=== PATIENT | female | born 1935 | race Caucasian/White ===

== ENCOUNTER → 2020-05-03 12:13 | Outpatient (BNVA) | payer MEDICARE, SELFPAY | PROVIDERS: PCP Internal Medicine; Visit Provider Internal Medicine Cardiovascular Disease | DX: Z45.02 Encounter for adjustment and management of automatic implantable cardiac defibrillator (principal); I50.20 Unspecified systolic (congestive) heart failure | CPT/HCPCS: 99212 ==

== ENCOUNTER → 2020-11-24 13:25 | Outpatient (REF) | payer OTHER, SELFPAY ==
--- NOTE | 2020-11-24 14:00 | CA_ITS ---
Transthoracic Echocardiogram Patient (Last, First, Middle): Sarah Rob M Gender: Female Date of : 1935 Age: 85 Procedure Date: 11/24/2020 Procedure Type: Transthoracic Echocardiogram Location: OP Height: 154.94 cm Weight: 51.26 kg BSA: 1.48 m2 Heart Rate: bpm BP: 112 / 70 mmHg Smearer: Ruma MD: Anatoly Dunn MD Java Programming Professor: Anatoly Dunn MD Symptoms: I44.7 LBBB I50.20 SYSTOLIC CHF Z86.79 PER HX CIRCULATORY DIS Study Quality: Fair ECG Rhythm: Sinus Conclusions: - 1. Normal LV systolic function with impaired relaxation filling pattern 2. Mildly dilated left atrium 3. Normal cardiac valvular Doppler 4. Normal RV systolic pressure 5. No pericardial effusion Findings Left Ventricle Normal left ventricular size, thickness, and systolic function. The visually estimated ejection fraction is between 55-60%. There is paradoxical septal motion consistent with a left bundle branch block. Spectral Doppler is indicative of an impaired relaxation filling pattern. E/E prime ratio is between 8 and 15 consistent with indeterminate filling pressures. Right Ventricle Normal right ventricular cavity size and systolic function. There is a pacemaker wire seen in the right ventricle. Atria The left atrium is mildly dilated. Interatrial shunt cannot be excluded. The right atrium is likely dilated. A pacemaker wire is identified in the right atrium. Aortic Valve Normal aortic valve structure and function. There is no aortic valve stenosis. There is no aortic valve regurgitation. Mitral Valve Normal mitral valve structure and function. There is trace mitral valve regurgitation. There is no mitral valve stenosis. Pulmonic Valve The pulmonic valve was not well visualized. Tricuspid Valve Likely normal tricuspid valve structure and function. There is trace tricuspid valve regurgitation. The right ventricular systolic pressure is normal. The right ventricular systolic pressure is 28 mmHg. Normal right atrial pressure. There is no evidence of pulmonary hypertension. Great Vessels All visible segments of the aorta are normal in size. The pulmonary artery was not well visualized. Venous The inferior vena cava is normal in size and collapses greater than 50% with inspiration. Pericardium/Pleural There is no evidence of pericardial effusion. Prior Study Comparison No prior study available for comparison. Measurements 2D Linear Measurements RVIDd: 2.28 RVIDd Index: 1.54 IVSd: 1.09 0.6-0.9/0.6-1.0 cm LVIDd: 4.26 3.9-5.3/4.2-5.9 cm LVIDd Index: 2.88 2.4-3.2/2.2-3.1 cm/m2 LVIDs: 2.90 2.0-3.6 cm LVPWd: 1.00 0.7-1.1 cm Ao Root: 2.80 2.1-3.5 cm LA Diam: 3.30 2.7-3.8/3.0-4.0 cm LAIDs Index: 2.23 1.5-2.3 cm/m2 LV Mass: 185.89 67-162/88-224 g LV Mass Index: 125.60 43-95/49-115 g/m2 LVOT Diam: 1.90 3.0+(-)1.3 cm 2D Systolic Function EF 4C: 46.00 >55% EF 2C: 68.70 >55% EF BiP: 59.10 >55% Mitral Valve E'Lateral: 9.14 E'Medial: 3.92 Aortic Valve AoV Pk Krzysztof: 1.28 AoV Mn Krzysztof: 0.92 AoV VTI: 0.31 AoV Pk Grad: 7.00 Aov Mn Grad: 4.00 WILLIAM Cont.VTI: 2.10 LVOT LVOT Pk Krzysztof: 1.03 LVOT Mn Krzysztof: 0.71 LVOT VTI: 0.23 LVOT Pk Grad: 4.00 LVOT Mn Grad: 2.00 LVOT Diam: 1.90 LVOT Area: 2.84 Diastolic Function E'Medial: 3.92 E' Laterial: 9.14 Tricuspid Valve TR Pk Krzysztof: 2.51 TR Pk Grad: 25.00 RA Press: 3.00 RVSP: 28.00 Great Vessels Aorta Ao Root-2D: 2.80 2.0-3.7 cm Ao Asc: 3.00 2.1-3.4 cm Ao Arch: 2.20 Updated in Other Vendor System with Status of Final Anatoly Dunn MD electronically signed on 11/24/2020 4:49:45 PM with status of Final
== END ==
LOC: HO.CARD 13:25
PROVIDERS: Visit Provider Internal Medicine Cardiovascular Disease
DX: I44.7 Left bundle-branch block, unspecified (principal); I50.20 Unspecified systolic (congestive) heart failure; Z86.79 Personal history of other diseases of the circulatory system
CPT/HCPCS: 93306

== ENCOUNTER → 2020-12-02 12:50 | Outpatient (BNVA) | payer MEDICARE, SELFPAY | PROVIDERS: PCP Internal Medicine; Referring Provider Internal Medicine; Visit Provider Internal Medicine Cardiovascular Disease | DX: I50.20 Unspecified systolic (congestive) heart failure (principal); Z95.810 Presence of automatic (implantable) cardiac defibrillator; Z79.899 Other long term (current) drug therapy | CPT/HCPCS: 99212 ==

== ENCOUNTER → 2021-01-25 11:19 | Outpatient (BNVA) | payer OTHER, SELFPAY | PROVIDERS: PCP Internal Medicine; Referring Provider Internal Medicine; Visit Provider Surgery | DX: L72.3 Sebaceous cyst (principal) | CPT/HCPCS: 99202 ==

== ENCOUNTER 2021-02-24 11:21 | Outpatient (REF) | payer OTHER, SELFPAY ==
[2021-02-24 11:32] VITALS: BP 143/76; PULSE 84; RESP 16; TEMP 36.2; O2SAT 98
[2021-02-24 11:33] VITALS: BMI 22.0
--- NOTE | 2021-02-24 12:17 | P.OP_ITS ---
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 She presents today for excision Operative findings: 2.5 by 2.5 cm epidermal inclusion cyst of the midback with no evidence of acute infection Specimen: Epidermal inclusion cyst midback Estimated blood loss: 2 mL Complications: None Procedure details: Patient was brought to the minor surgery suite placed in a right lateral decubitus position. The site of surgery was confirmed by the patient and her daughter informed consent confirmed. Skin was prepped with Betadine and draped in a sterile fashion. Local anesthesia consisting 1% lidocaine with epinephrine was then infiltrated circumferentially around the lesion. An elliptical incision oriented longitudinally was then created with a scalpel carried out through subcutaneous tissue. Sharp dissection was then used to dissect the lesion from the subcutaneous tissue. Lesion was passed off the t able and sent to pathology for further examination. Light pressure was held to maintain hemostasis. Dermis was then reapproximated using interrupted 3-0 Polysorb sutures. Skin was closed using interrupted 4-0 nylon sutures. 2 x 2 gauze and Tegaderm were then applied. The patient tolerated the procedure well. Sponge, instrument, needle counts were correct. The patient was discharged to home in stable condition.
== END 2021-02-24 11:22 | disposition home or self-care (01) ==
LOC: HO.MS 11:21
PROVIDERS: Visit Provider Surgery
PROC: (CPT 11403; principal; 2021-02-24 11:30)
DX: L72.0 Epidermal cyst (principal)
CPT/HCPCS: 11403; 88304

== ENCOUNTER → 2021-03-03 12:56 | Outpatient (BNVA) | payer OTHER, SELFPAY | PROVIDERS: PCP Internal Medicine; Referring Provider Internal Medicine; Visit Provider Surgery | DX: L72.0 Epidermal cyst (principal); Z90.49 Acquired absence of other specified parts of digestive tract; Z88.0 Allergy status to penicillin; Z48.02 Encounter for removal of sutures | CPT/HCPCS: 99212 ==

== ENCOUNTER 2021-10-11 13:29 | Emergency (ER) | payer OTHER, SELFPAY ==
--- NOTE | ~2021-10-11 | CT_ITS ---
EXAMINATION: CT HEAD WITHOUT CONTRAST CLINICAL INFORMATION: Fall, trauma, blood thinner COMPARISON: CT had noncontrast 04/05/2020 TECHNIQUE: Contiguous axial imaging was performed from the skull base to vertex without intravenous administration of contrast. Additional 2-D coronal and sagittal reformatted images are generated on the CT workstation and uploaded to PACS. This CT examination was performed using dose optimization techniques as appropriate, variously including the following: *Automated exposure control *Adjustment of mA and/or kV according to patient size (this includes techniques or standardized protocols for targeted exams where dose is matched to indication/reason for exam; i.e. extremities or head) *Use of iterative reconstruction technique DLP: 569 mGy-cm FINDINGS: There is upper right frontal scalp hematoma measuring approximately 0.6 cm thickness by 2 cm across. There is no intracranial hemorrhage, hematoma, or extra-axial fluid collection. The ventricles are normal in size. There is no edema or mass effect or midline shift. Again, extensive periventricular white matter gliosis is present consistent with chronic small vessel ischemic changes. There is no visible acute territorial infarct or mass lesion. The calvarium appears intact. There is no pneumocephalus or orbital emphysema. The visualized sinuses and middle ears and mastoid air cells show no significant mucosal thickening. There are no air-fluid levels. CT/CT head/brain wo con IMPRESSION: -Upper right frontal scalp hematoma 0.6 cm thickness by 2 cm across. -No intracranial hemorrhage or hematoma. -Chronic periventricular white matter gliosis/chronic small vessel ischemic changes. -No acute territorial infarct or mass lesion.
--- NOTE | ~2021-10-11 | XR_ITS ---
EXAMINATION: XR CHEST CLINICAL INFORMATION: Cough, shortness of breath COMPARISON: X-ray 03/10/2019 TECHNIQUE: Frontal view of the chest was obtained. FINDINGS: Rotated positioning. Power source in the left pectoral soft tissue with leads projected in the region of the right atrium, right ventricle and coronary sinus. Low lung volumes. Heart size within normal limits. Calcification of the aortic arch. There is peribronchial thickening in bilateral perihilar regions and bilateral lower lobes, with subjacent hazy opacities. No dense consolidation is otherwise seen. The left lateral lower lung and costophrenic angle is obscured by the correlating power source. No right-sided pleural effusion. No overt pulmonary edema. No pneumothorax seen. XR/XR chest 1V IMPRESSION: Peribronchial thickening with associated hazy opacities in the bilateral perihilar regions and bilateral lower lobes. This could reflect infectious or inflammatory process. Recommendation is for a follow-up chest series to be obtained following treatment and/or resolution of symptoms to assure resolution of this appearance.
--- NOTE | ~2021-10-11 | CT_ITS ---
EXAMINATION: CT CHEST WITHOUT CONTRAST CLINICAL INFORMATION: Shortness of breath and cough COMPARISON: Chest radiograph earlier today TECHNIQUE: Multidetector volumetric CT imaging of the chest was done. Axial MIP volume rendering provided. Sagittal and coronal reformatted images were obtained. This CT examination was performed using dose optimization techniques as appropriate, variously including the following: *Automated exposure control *Adjustment of mA and/or kV according to patient size (this includes techniques or standardized protocols for targeted exams where dose is matched to indication/reason for exam; i.e. extremities or head) *Use of iterative reconstruction technique The exam is degraded by significant respiratory/motion artifact. DLP: 214 mGy-cm FINDINGS: LUNGS: Bibasilar atelectasis is seen with some dependent groundglass opacity. No consolidations with air bronchograms are present. No suspicious lung masses are seen. MEDIASTINUM: A left chest wall bipolar pacemaker is present. Heart size is normal. A tiny pericardial effusion is seen. Atherosclerotic changes are present in the aorta and its branches without aneurysm. PLEURA: There is no pleural effusion. No pleural mass or thickening. AXILLA: No lymphadenopathy. UPPER ABDOMEN: Unremarkable. OSSEOUS STRUCTURES: Compression fractures are present at L1 and T11. Degenerative changes are present throughout the spine. CT/CT chest wo con IMPRESSION: No acute intrathoracic disease. Bibasilar atelectasis and groundglass opacity without consolidation. Fleischner guidelines were followed.
--- NOTE | ~2021-10-11 | CT_ITS ---
EXAMINATION: CT ANGIOGRAM OF THE CHEST WITH AND WITHOUT CONTRAST (CT PULMONARY ANGIOGRAM FOR PE) CLINICAL INFORMATION: Reason for Exam Elevated dimer, hypoxia, fall COMPARISON: 10/11/2021 TECHNIQUE: Prior to contrast administration, noncontrast localization images were obtained. Subsequently, multidetector volumetric imaging was performed from the thoracic inlet to below the diaphragms following the administration of 80 mL Omnipaque 350 intravenous contrast. No contrast reaction reported Sagittal, coronal, and MIP oblique sagittal reformatted images were obtained on the CT workstation, uploaded to PACS, and reviewed. This CT examination was performed using dose optimization techniques as appropriate, variously including the following: *Automated exposure control *Adjustment of mA and/or kV according to patient size (this includes techniques or standardized protocols for targeted exams where dose is matched to indication/reason for exam; i.e. extremities or head) *Use of iterative reconstruction technique Total exam dose-length product 240 mGy-cm FINDINGS: QUALITY OF STUDY/CONTRAST BOLUS: Satisfactory. PULMONARY ARTERIES: No central or segmental pulmonary emboli. THORACIC AORTA: No evidence of aneurysm or dissection. There is extensive atherosclerotic plaque and calcification. LUNG: Dependent regions of groundglass opacity with some denser opacities which may at least partially be due to atelectasis, though a component of aspiration may also be present. Bronchial wall thickening is noted in the bilateral lower lobes along with some impacted airways. PLEURA: Trace pleural effusions. No pneumothorax. MEDIASTINUM: Thyroid gland appears grossly unremarkable. No mediastinal lymphadenopathy is seen. Cardiac size is within normal limits. Trace pericardial effusion. Coronary artery calcifications are present. CHEST WALL/AXILLA: Left-sided pacemaker/AICD. No axillary lymphadenopathy is present. OSSEOUS STRUCTURES: Degenerative changes are noted in the spine. Redemonstrated compression deformities of T11 and L1. UPPER ABDOMEN: Unremarkable. No reflux of contrast into the hepatic veins to suggest elevated right heart pressures. CT/CT angio chest PE protocol IMPRESSION: 1. No pulmonary embolus identified. 2. Dependent regions of opacity in the lower lobes. While at least some of this may be due to atelectasis, superimposed areas of aspiration may also be present, as some of the bilateral lower lobe airways are opacified. 3. Trace pleural effusions. Trace pericardial effusion. VTE: negative
--- NOTE | ~2021-10-11 | CT_ITS ---
EXAMINATION: CT CERVICAL SPINE WITHOUT CONTRAST CLINICAL INFORMATION: Fall, trauma, blood thinners. COMPARISON: CT had noncontrast 10/11/2021, 04/05/2020 TECHNIQUE: Multidetector volumetric CT imaging of the cervical spine is performed without contrast in the axial plane. Additional 2D reformatted coronal and sagittal images are generated on the CT workstation and uploaded to PACS. This CT examination was performed using dose optimization techniques as appropriate, variously including the following: *Automated exposure control *Adjustment of mA and/or kV according to patient size (this includes techniques or standardized protocols for targeted exams where dose is matched to indication/reason for exam; i.e. extremities or head) *Use of iterative reconstruction technique DLP: 253 mGy-cm FINDINGS: There is no vertebral compression fracture, fracture line, spondylolisthesis, or prevertebral soft tissue swelling. The craniocervical junction appears normal. The odontoid appears intact. There is normal cervical lordosis. There is levocurvature cervical thoracic spine. Degenerative disc changes are present, greatest at C3-C4 and C5-C6 with disc narrowing and endplate sclerosis and vertebral spurring. No perched facet. There is no apical pneumothorax. CT/CT cervical spine wo con IMPRESSION: 1. No acute bony abnormality or prevertebral soft tissue swelling. 2. Degenerative disc changes C3-C4 and C5-C6.
[2021-10-11 15:23] VITALS: BP 122/63; PULSE 63; RESP 18; TEMP 36.8; O2SAT 94; BMI 16.6
--- NOTE | 2021-10-11 19:35 | ED.FALL ---
HPI - Fall General Chief Complaint: Fall <JOE Guillory Last Filed: 10/12/21 03:18> Stated Complaint: fall head inj <JOE Guillory Last Filed: 10/12/21 03:18> Time Seen by Provider: 10/11/21 16:47 <JOE Guillory Last Filed: 10/12/21 03:18> Source: patient <JOE Guillory Last Filed: 10/12/21 03:18> Mode of arrival: ambulatory <JOE Guillory Last Filed: 10/12/21 03:18> Limitations: no limitations <JOE Guillory Last Filed: 10/12/21 03:18> History of Present Illness HPI Narrative: 86-year-old female past medical history significant for Alzheimer's, heart failure, cardiomyopathy, left bundle-branch block, asthma presenting to the emergency department with complaints of fall today and productive cough times few weeks. Patient is accompanied by her daughter, both of which are poor historians, daughter tells me that her mother was getting out of her bed to walk to the bathroom which she never does by herself because of her unsteady gait and she tripped and fell. She hit her head and she has a bruise to her right forehead. She tells me that she thinks that her mother is on blood thinners however she is unsure. She tells me that there was no loss of consciousness. She also reports that her mother has been having a productive cough, she tells me that she did not give her mother breathing treatments today. Patient tells me she feels fine and her head is hurting her little bit, denies dizziness or vision changes. She has no other complaints at this time however poor historian. She denies chest pain, shortness of breath, fevers, chills, nausea, vomiting, abdominal pain. <JOE Guillory Last Filed: 10/12/21 03:18> MD complaint: fall <JOE Guillory Last Filed: 10/12/21 03:18> Onset (ago): day(s) (1) <JOE Guillory Last Filed: 10/12/21 03:18> Fall from: standing <JOE Guillory - Last Filed: 10/12/21 03:18> Fall witnessed: yes, by family <JOE Guillory - Last Filed: 10/12/21 03:18> Place fall occurred: home <JOE Guillory - Last Filed: 10/12/21 03:18> Loss of consciousness: none <JOE Guillory - Last Filed: 10/12/21 03:18> Prolonged down time: no <JOE Guillory - Last Filed: 10/12/21 03:18> Symptoms prior to fall: none <JOE Guillory - Last Filed: 10/12/21 03:18> Context: tripped/slipped <JOE Guillory - Last Filed: 10/12/21 03:18> Location of injury: head <JOE Guillory Last Filed: 10/12/21 03:18> Severity: moderate <JOE Guillory Last Filed: 10/12/21 03:18> Associated symptoms (after fall): denies <JOE Guillory - Last Filed: 10/12/21 03:18> Related Data Home Medications: Home Medications Medication Instructions Recorded Confirmed atorvastatin 80 mg tablet 80 mg PO DAILY 05/03/20 12/02/20 calcium carbonate 600 mg-vitamin 1 tab PO DAILY tab 05/03/20 12/02/20 D3 10 mcg (400 unit) tablet carvedilol 12.5 mg tablet 12.5 mg PO BID tab 05/03/20 12/02/20 clopidogrel 75 mg tablet 75 mg PO QAM 05/03/20 12/02/20 fluticasone furoate 100 ea INHALATION 05/03/20 12/02/20 mcg-vilanterol 25 mcg/dose inhalation powder furosemide 20 mg tablet 20 mg PO QAM 05/03/20 12/02/20 hydralazine 25 mg tablet 25 mg PO 05/03/20 12/02/20 insulin detemir U-100 100 unit/mL 5 unit SUBCUT 05/03/20 12/02/20 (3 mL) subcutaneous pen linagliptin 5 mg tablet 5 mg PO QAM 05/03/20 12/02/20 loratadine 10 mg tablet 10 mg PO QAM 05/03/20 12/02/20 losartan 100 mg tablet 100 mg PO DAILY 05/03/20 12/02/20 meclizine 25 mg tablet 25 mg PO TID 05/03/20 12/02/20 blood sugar diagnostic (FreeStyle #10 ea 01/25/21 Lite Strips) pen needle, diabetic 31 gauge x #50 ea 01/25/2107/27 (Easy Touch) Previous Rx's Medication Instructions Recorded albuterol sulfate 90 mcg/actuation 2 inh INHALATION Q4-6H PRN #1 ea 10/11/21 breath activated powder inhaler azithromycin 250 mg tablet See Rx Instructions .ROUTE 10/12/21 .COMPLEX #6 tab <JOE Guillory Last Filed: 10/12/21 03:18> Allergies/Adverse Reactions: Allergies Allergy/AdvReac Type Severity Reaction Status Date / Time Penicillins [PENICILLINS] Allergy Unknown RASH Verified 10/11/21 15:23 <JOE Guillory Last Filed: 10/12/21 03:18> Review of Systems Review of Systems: Constitutional : No Weight loss, No Fever, No Chills, No Fatigue, No Malaise ENT/Mouth : No sore throat, No Rhinorrhea Eyes: No Eye Pain, No Swelling, No Redness Cardiovascular : No Chest Pain, No SOB, No Dyspnea on Exertion, No Orthopnea, No Edema, No Palpitations Respiratory : + Cough, + Sputum, No Wheezing Gastrointestinal : No Nausea, No Vomiting, No Diarrhea, No Constipation, No abdominal Pain, No Hematochezia, No Melena Genitourinary : No Dysuria, No Urinary Frequency, No Hematuria, Musculoskeletal : No joint pain, No Myalgias, No Joint Swelling Skin : No Skin Lesions, No rash Neuro : No Weakness, No Numbness, No Dizziness, + Headache Psych : No Anxiety/Panic, No Depression All other systems reviewed and are negative <JOE Guillory Last Filed: 10/12/21 03:18> Yes all other systems are reviewed and are negative <JOE Guillory Last Filed: 10/12/21 03:18> [facility] Past Medical History Attestation statement: The following information was validated with the patient. 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 Mother No problems noted. <JOE Guillory - Last Filed: 10/12/21 03:18> Social History Social History: Social History Advance Directives: No Advance Directives Information Provided: No <JOE Guillory - Last Filed: 10/12/21 03:18> Physical Exam Vital Signs: Vital Signs: Last Vital Signs Temp 98.3 F 10/11/21 15:23 Pulse 62 10/11/21 23:39 Resp 16 10/12/21 01:55 BP 151/72 H 10/11/21 23:39 Pulse Ox 93 10/12/21 01:55 BMI result Body Mass Index 16.6 VSS <JOE Guillory - Last Filed: 10/12/21 03:18> Vital Signs: Last Vital Signs Temp 98.3 F 10/11/21 15:23 Pulse 62 05/31/22 23:39 Resp 16 10/12/21 01:55 BP 151/72 H 10/11/21 23:39 Pulse Ox 93 10/12/21 01:55 BMI result Body Mass Index 16.6 <Marcela Dubois MD - Last Filed: 10/12/21 05:00> Appearance: Alert.? Oriented to person, not time, situation. According to daughter this is patient's baseline. No acute distress.? Head: Normocephalic, + hematoma to r. forehead not bleeding (doesn't require sutures) , no step-offs or deformities Eyes: Pupils equal, round and reactive to light.?EOMI ENT: Pharynx normal.? Neck: Normal inspection.? Neck supple.? CVS: Normal heart rate and rhythm.? Pulses normal.? Respiratory: No respiratory distress.? Breath sounds normal.? Abdomen: Soft and nontender.? Skin: Skin warm and dry.? Normal skin color.? Normal skin turgor.? Extremities: No lower extremity edema.? No calf ttp. Global weakness. Back: No midline tenderness, no C-spine tenderness, full range of motion,. Neuro: Oriented to person, not time or situation. According to daughter this is baseline. No motor deficit.? No sensory deficit. CN 2-12 intact . Able to answer basic questions. <JOE Guillory - Last Filed: 10/12/21 03:18> Course Reevaluation(s) Reevaluation #1: Patient's CBC with no acute findings. Chemistry with a slight GILBERT however this appears to be patient's baseline. Patient's calcium slightly elevated as well as an elevated BUN, likely from dehydration. Total bilirubin 1.4 however no tenderness to palpation of abdomen. BNP 193, unlikely that this is heart failure. Troponin 15, repeat troponin 15.9, not meeting criteria for ACS. Patient has 3+ leukocyte esterases, will treat for UTI as patient is unable to tell me whether not she is having urinary symptoms. COVID and influenza negative. D-dimer elevated CTA was obtained. <JOE Guillory - Last Filed: 10/12/21 03:18> Time: 23:00 <JOE Guillory - Last Filed: 10/12/21 03:18> Reevaluation #2: CT of the cervical spine with no acute bony abnormalities or prevertebral soft tissue swelling. There are degenerative changes in C3 through C4 and C5-C6 however these appear to be chronic not acute. There is an upper right frontal scalp hematoma .6 cm , consistent with physical exam findings. No intracranial hemorrhage or hematoma. Chronic periventricular white matter changes noted. No acute territorial infarct or mass lesion noted. Chest x-ray with peribronchial thickening with associated hazy opacities in the bilateral perihilar regions in bilateral lower lobes, reflecting infectious or inflammatory process, patient does have a productive cough therefore she will be treated with doxycycline p.o. 100 mg b.i.d. x7 days. Initially ordered a dry chest CT which showed no acute intrathoracic disease it did show bilateral atelectasis and ground-glass opacities without consolidation again consistent with possible infectious etiology. This study was limited as there is no contrast therefore CTA of the chest tubes obtain to also visualize and rule out PE as patient was slightly hypoxic at 1 point. Patient was ambulated around her room with 2 assists, saturating 93% on room air. Patient doing well did not report any dizziness or pain. <JOE Guillory - Last Filed: 10/12/21 03:18> Time: 02:00 <JOE Guillory - Last Filed: 10/12/21 03:18> Reevaluation #3: Delay in obtaining CTA of the chest because patient did not adequate IV access due to being on tough sick. Nursing staff started another IV on this patient she is now on her way to CTA of chest to r.o PE. <JOE Guillory - Last Filed: 10/12/21 03:18> Time: 03:14 <JOE Guillory - Last Filed: 10/12/21 03:18> Additional Reevaluation(s): 316 CTA pending. Report given to . Patient's cough is improved, lungs sound better after DuoNeb. <JOE Guillory - Last Filed: 10/12/21 03:18> 7 CTA pending. Report given to . Patient's cough is improved, lungs sound better after DuoNeb. 0457: CTA reviewed and no evidence of PE, however there is possibility of pneumonia although patient has no white count and is afebrile. Patient is hernia being sent out on azithromycin as well as albuterol. <Marcela Dubois MD - Last Filed: 10/12/21 05:00> MDM - Fall [facility] Narrative Medical decision making narrative: 1997 86-year-old female presents status post fall with headache, and productive cough for a few days. Both patient and patient's daughter poor historians. Physical examination significant for global weakness, no focal neuro deficits, patient alert to person, not time or situation, according to daughter who is at the bedside this is patient's baseline. Crackles appreciated bilaterally with diminished breath sounds. Abdomen soft nontender nondistended. Pupils equal round and reactive to light, extraocular movements intact. Patient able to follow basic commands. Plan at this time is urine, basic labs, chest x-ray, DuoNeb. Also obtain a CT of the head and neck to rule out ICH although unlikely. Will obtain troponin to rule out ACS. <JEO Guillory - Last Filed: 10/12/21 03:18> Medical Records Attestation: I reviewed the patient's medical records. <JOE Guillory - Last Filed: 10/12/21 03:18> Lab Data Attestation: I reviewed the patient's lab results. <JOE Guillory - Last Filed: 10/12/21 03:18> Result diagrams: : 10/11/21 20:16 10/11/21 20:16 <JOE Guillory - Last Filed: 10/12/21 03:18> Labs: Lab Results 10/11/21 10/11/21 10/11/21 Range/Units 20:15 20:16 20:16 WBC 8.1 (4.8-10.8) X10*3/uL RBC 3.88 L (4.20-5.50) X10*6/uL Hgb 12.8 (12.0-16.0) g/dl Hct 38.5 (37.0-47.0) % MCV 99.2 H (80.0-98.0) fL MCH 33.0 (27.0-33.0) pg MCHC 33.2 (31.0-35.0) g/dl RDW 13.2 (11.0-16.0) % Plt Count 157 L (160-400) X10*3/uL MPV 9.9 (9.4-12.3) fL Immature Gran % (Auto) 0.2 (0.0-0.4) % Neut % (Auto) 55.6 (45-73) % Lymph % (Auto) 20.9 (20-40) % [place] % (Auto) 5.2 (2-11) % Eos % (Auto) 17.5 H (0-4) % Baso % (Auto) 0.6 (0-2) % Lymph # (Auto) 1.7 (1.2-4.9) X10*3/uL [place] # (Auto) 0.4 (0.1-1.2) X10*3/uL Eos # (Auto) 1.4 H (0.0-0.4) X10*3/uL Baso # (Auto) 0.1 (0.0-0.2) X10*3/uL Abs Immat Gran (auto) 0.02 (0.00-0.03) X10*3/uL Absolute Neuts (auto) 4.5 (2.0-8.3) x10*3/uL Absolute Nucleated RBC 0.000 (0.0-0.012) X10*3/uL Nucleated RBC % (auto) 0.0 (0.0-0.2) /100WBC PT 12.8 (9.9-13.0) SEC INR 1.1 (0.9-1.1) D-Dimer High Sensitivty 560 NG/ML Sodium (135-145) mmol/L Potassium (3.3-5.1) mmol/L Chloride (96-108) mmol/L Carbon Dioxide (22-29) mmol/L Anion Gap (12-20) BUN (9-16) mg/dL Creatinine (0.5-1.4) mg/dL Estim Creat Clear Calc Estimated GFR Random Glucose (60-115) mg/dL Calcium (8.4-10.2) mg/dL Total Bilirubin (0.0-1.0) mg/dL AST (5-31) U/L ALT (0-31) U/L Alkaline Phosphatase (39-117) U/L Troponin I High Sens 15.0 (<3.5-17.0) ng/L B-Natriuretic Peptide 193 H (<100) pg/mL Total Protein (6.5-8.0) g/dL Albumin (3.5-5.0) g/dL Urine Color Urine Appearance Urine pH (5.0-8.0) Ur Specific [place] (1.005-1.025) Urine Protein (NEG-TRACE) MG/DL Urine Glucose (UA) (NEG) MG/DL Urine Ketones (NEG) MG/DL Urine Blood (NEG) Urine Nitrite (NEG) Ur Leukocyte Esterase (NEG) Urine RBC (0) /HPF Urine WBC (0-4) /HPF Ur Squamous Epith Cells /LPF Urine Bacteria /LPF Urine Mucus /LPF COVID-19 (MIRANDA) (Negative) COVID-19 Clin Com Influenza Type A (KAUSHIK) (Negative) Influenza Type B (KAUSHIK) (Negative) Influenza A & B Note 10/11/21 10/11/21 10/11/21 Range/Units 20:16 21:21 23:27 WBC (4.8-10.8) X10*3/uL RBC (4.20-5.50) X10*6/uL Hgb (12.0-16.0) g/dl Hct (37.0-47.0) % MCV (80.0-98.0) fL MCH (27.0-33.0) pg MCHC (31.0-35.0) g/dl RDW (11.0-16.0) % Plt Count (160-400) X10*3/uL MPV (9.4-12.3) fL Immature Gran % (Auto) (0.0-0.4) % Neut % (Auto) (45-73) % Lymph % (Auto) (20-40) % [place] % (Auto) (2-11) % Eos % (Auto) (0-4) % Baso % (Auto) (0-2) % Lymph # (Auto) (1.2-4.9) X10*3/uL [place] # (Auto) (0.1-1.2) X10*3/uL Eos # (Auto) (0.0-0.4) X10*3/uL Baso # (Auto) (0.0-0.2) X10*3/uL Abs Immat Gran (auto) (0.00-0.03) X10*3/uL Absolute Neuts (auto) (2.0-8.3) x10*3/uL Absolute Nucleated RBC (0.0-0.012) X10*3/uL Nucleated RBC % (auto) (0.0-0.2) /100WBC PT (9.9-13.0) SEC INR (0.9-1.1) D-Dimer High Sensitivty NG/ML Sodium 141 (135-145) mmol/L Potassium 3.8 (3.3-5.1) mmol/L Chloride 107 (96-108) mmol/L Carbon Dioxide 28 (22-29) mmol/L Anion Gap 10 L (12-20) BUN 21 H (9-16) mg/dL Creatinine 1.48 H (0.5-1.4) mg/dL Estim Creat Clear Calc 17.2 Estimated GFR 34 Random Glucose 111 (60-115) mg/dL Calcium 10.6 H (8.4-10.2) mg/dL Total Bilirubin 1.4 H (0.0-1.0) mg/dL AST 31 (5-31) U/L ALT 23 (0-31) U/L Alkaline Phosphatase 56 (39-117) U/L Troponin I High Sens 15.9 (<3.5-17.0) ng/L B-Natriuretic Peptide (<100) pg/mL Total Protein 6.8 (6.5-8.0) g/dL Albumin 3.4 L (3.5-5.0) g/dL Urine Color YELLOW Urine Appearance HAZY Urine pH 6.5 (5.0-8.0) Ur Specific [place] 1.015 (1.005-1.025) Urine Protein NEG (NEG-TRACE) MG/DL Urine Glucose (UA) NEG (NEG) MG/DL Urine Ketones NEG (NEG) MG/DL Urine Blood NEG (NEG) Urine Nitrite NEG (NEG) Ur Leukocyte Esterase 3+ H (NEG) Urine RBC 1-4 (0) /HPF Urine WBC 15-29 H (0-4) /HPF Ur Squamous Epith Cells 1+ /LPF Urine Bacteria 3+ /LPF Urine Mucus 2+ /LPF COVID-19 (MIRANDA) (Negative) COVID-19 Clin Com Influenza Type A (KAUSHIK) (Negative) Influenza Type B (KAUSHIK) (Negative) Influenza A & B Note 10/11/21 10/11/21 Range/Units 23:27 23:27 WBC (4.8-10.8) X10*3/uL RBC (4.20-5.50) X10*6/uL Hgb (12.0-16.0) g/dl Hct (37.0-47.0) % MCV (80.0-98.0) fL MCH (27.0-33.0) pg MCHC (31.0-35.0) g/dl RDW (11.0-16.0) % Plt Count (160-400) X10*3/uL MPV (9.4-12.3) fL Immature Gran % (Auto) (0.0-0.4) % Neut % (Auto) (45-73) % Lymph % (Auto) (20-40) % [place] % (Auto) (2-11) % Eos % (Auto) (0-4) % Baso % (Auto) (0-2) % Lymph # (Auto) (1.2-4.9) X10*3/uL [place] # (Auto) (0.1-1.2) X10*3/uL Eos # (Auto) (0.0-0.4) X10*3/uL Baso # (Auto) (0.0-0.2) X10*3/uL Abs Immat Gran (auto) (0.00-0.03) X10*3/uL Absolute Neuts (auto) (2.0-8.3) x10*3/uL Absolute Nucleated RBC (0.0-0.012) X10*3/uL Nucleated RBC % (auto) (0.0-0.2) /100WBC PT (9.9-13.0) SEC INR (0.9-1.1) D-Dimer High Sensitivty NG/ML Sodium (135-145) mmol/L Potassium (3.3-5.1) mmol/L Chloride (96-108) mmol/L Carbon Dioxide (22-29) mmol/L Anion Gap (12-20) BUN (9-16) mg/dL Creatinine (0.5-1.4) mg/dL Estim Creat Clear Calc Estimated GFR Random Glucose (60-115) mg/dL Calcium (8.4-10.2) mg/dL Total Bilirubin (0.0-1.0) mg/dL AST (5-31) U/L ALT (0-31) U/L Alkaline Phosphatase (39-117) U/L Troponin I High Sens (<3.5-17.0) ng/L B-Natriuretic Peptide (<100) pg/mL Total Protein (6.5-8.0) g/dL Albumin (3.5-5.0) g/dL Urine Color Urine Appearance Urine pH (5.0-8.0) Ur Specific [place] (1.005-1.025) Urine Protein (NEG-TRACE) MG/DL Urine Glucose (UA) (NEG) MG/DL Urine Ketones (NEG) MG/DL Urine Blood (NEG) Urine Nitrite (NEG) Ur Leukocyte Esterase (NEG) Urine RBC (0) /HPF Urine WBC (0-4) /HPF Ur Squamous Epith Cells /LPF Urine Bacteria /LPF Urine Mucus /LPF COVID-19 (MIRANDA) Negative (Negative) COVID-19 Clin Com See Note Influenza Type A (KAUSHIK) Negative (Negative) Influenza Type B (KAUSHIK) Negative (Negative) Influenza A & B Note See Note <JOE Guillory - Last Filed: 10/12/21 03:18> Lab Results 10/11/21 10/11/21 10/11/21 Range/Units 20:15 20:16 20:16 WBC 8.1 (4.8-10.8) X10*3/uL RBC 3.88 L (4.20-5.50) X10*6/uL Hgb 12.8 (12.0-16.0) g/dl Hct 38.5 (37.0-47.0) % MCV 99.2 H (80.0-98.0) fL MCH 33.0 (27.0-33.0) pg MCHC 33.2 (31.0-35.0) g/dl RDW 13.2 (11.0-16.0) % Plt Count 157 L (160-400) X10*3/uL MPV 9.9 (9.4-12.3) fL Immature Gran % (Auto) 0.2 (0.0-0.4) % Neut % (Auto) 55.6 (45-73) % Lymph % (Auto) 20.9 (20-40) % [place] % (Auto) 5.2 (2-11) % Eos % (Auto) 17.5 H (0-4) % Baso % (Auto) 0.6 (0-2) % Lymph # (Auto) 1.7 (1.2-4.9) X10*3/uL [place] # (Auto) 0.4 (0.1-1.2) X10*3/uL Eos # (Auto) 1.4 H (0.0-0.4) X10*3/uL Baso # (Auto) 0.1 (0.0-0.2) X10*3/uL Abs Immat Gran (auto) 0.02 (0.00-0.03) X10*3/uL Absolute Neuts (auto) 4.5 (2.0-8.3) x10*3/uL Absolute Nucleated RBC 0.000 (0.0-0.012) X10*3/uL Nucleated RBC % (auto) 0.0 (0.0-0.2) /100WBC PT 12.8 (9.9-13.0) SEC INR 1.1 (0.9-1.1) D-Dimer High Sensitivty 560 NG/ML Sodium (135-145) mmol/L Potassium (3.3-5.1) mmol/L Chloride (96-108) mmol/L Carbon Dioxide (22-29) mmol/L Anion Gap (12-20) BUN (9-16) mg/dL Creatinine (0.5-1.4) mg/dL Estim Creat Clear Calc Estimated GFR Random Glucose (60-115) mg/dL Calcium (8.4-10.2) mg/dL Total Bilirubin (0.0-1.0) mg/dL AST (5-31) U/L ALT (0-31) U/L Alkaline Phosphatase (39-117) U/L Troponin I High Sens 15.0 (<3.5-17.0) ng/L B-Natriuretic Peptide 193 H (<100) pg/mL Total Protein (6.5-8.0) g/dL Albumin (3.5-5.0) g/dL Urine Color Urine Appearance Urine pH (5.0-8.0) Ur Specific [place] (1.005-1.025) Urine Protein (NEG-TRACE) MG/DL Urine Glucose (UA) (NEG) MG/DL Urine Ketones (NEG) MG/DL Urine Blood (NEG) Urine Nitrite (NEG) Ur Leukocyte Esterase (NEG) Urine RBC (0) /HPF Urine WBC (0-4) /HPF Ur Squamous Epith Cells /LPF Urine Bacteria /LPF Urine Mucus /LPF COVID-19 (MIRANDA) (Negative) COVID-19 Clin Com Influenza Type A (KAUSHIK) (Negative) Influenza Type B (KAUSHIK) (Negative) Influenza A & B Note 10/11/21 10/11/21 10/11/21 Range/Units 20:16 21:21 23:27 WBC (4.8-10.8) X10*3/uL RBC (4.20-5.50) X10*6/uL Hgb (12.0-16.0) g/dl Hct (37.0-47.0) % MCV (80.0-98.0) fL MCH (27.0-33.0) pg MCHC (31.0-35.0) g/dl RDW (11.0-16.0) % Plt Count (160-400) X10*3/uL MPV (9.4-12.3) fL Immature Gran % (Auto) (0.0-0.4) % Neut % (Auto) (45-73) % Lymph % (Auto) (20-40) % [place] % (Auto) (2-11) % Eos % (Auto) (0-4) % Baso % (Auto) (0-2) % Lymph # (Auto) (1.2-4.9) X10*3/uL [place] # (Auto) (0.1-1.2) X10*3/uL Eos # (Auto) (0.0-0.4) X10*3/uL Baso # (Auto) (0.0-0.2) X10*3/uL Abs Immat Gran (auto) (0.00-0.03) X10*3/uL Absolute Neuts (auto) (2.0-8.3) x10*3/uL Absolute Nucleated RBC (0.0-0.012) X10*3/uL Nucleated RBC % (auto) (0.0-0.2) /100WBC PT (9.9-13.0) SEC INR (0.9-1.1) D-Dimer High Sensitivty NG/ML Sodium 141 (135-145) mmol/L Potassium 3.8 (3.3-5.1) mmol/L Chloride 107 (96-108) mmol/L Carbon Dioxide 28 (22-29) mmol/L Anion Gap 10 L (12-20) BUN 21 H (9-16) mg/dL Creatinine 1.48 H (0.5-1.4) mg/dL Estim Creat Clear Calc 17.2 Estimated GFR 34 Random Glucose 111 (60-115) mg/dL Calcium 10.6 H (8.4-10.2) mg/dL Total Bilirubin 1.4 H (0.0-1.0) mg/dL AST 31 (5-31) U/L ALT 23 (0-31) U/L Alkaline Phosphatase 56 (39-117) U/L Troponin I High Sens 15.9 (<3.5-17.0) ng/L B-Natriuretic Peptide (<100) pg/mL Total Protein 6.8 (6.5-8.0) g/dL Albumin 3.4 L (3.5-5.0) g/dL Urine Color YELLOW Urine Appearance HAZY Urine pH 6.5 (5.0-8.0) Ur Specific [place] 1.015 (1.005-1.025) Urine Protein NEG (NEG-TRACE) MG/DL Urine Glucose (UA) NEG (NEG) MG/DL Urine Ketones NEG (NEG) MG/DL Urine Blood NEG (NEG) Urine Nitrite NEG (NEG) Ur Leukocyte Esterase 3+ H (NEG) Urine RBC 1-4 (0) /HPF Urine WBC 15-29 H (0-4) /HPF Ur Squamous Epith Cells 1+ /LPF Urine Bacteria 3+ /LPF Urine Mucus 2+ /LPF COVID-19 (MIRANDA) (Negative) COVID-19 Clin Com Influenza Type A (KAUSHIK) (Negative) Influenza Type B (KAUSHIK) (Negative) Influenza A & B Note 10/11/21 10/11/21 Range/Units 23:27 23:27 WBC (4.8-10.8) X10*3/uL RBC (4.20-5.50) X10*6/uL Hgb (12.0-16.0) g/dl Hct (37.0-47.0) % MCV (80.0-98.0) fL MCH (27.0-33.0) pg MCHC (31.0-35.0) g/dl RDW (11.0-16.0) % Plt Count (160-400) X10*3/uL MPV (9.4-12.3) fL Immature Gran % (Auto) (0.0-0.4) % Neut % (Auto) (45-73) % Lymph % (Auto) (20-40) % [place] % (Auto) (2-11) % Eos % (Auto) (0-4) % Baso % (Auto) (0-2) % Lymph # (Auto) (1.2-4.9) X10*3/uL [place] # (Auto) (0.1-1.2) X10*3/uL Eos # (Auto) (0.0-0.4) X10*3/uL Baso # (Auto) (0.0-0.2) X10*3/uL Abs Immat Gran (auto) (0.00-0.03) X10*3/uL Absolute Neuts (auto) (2.0-8.3) x10*3/uL Absolute Nucleated RBC (0.0-0.012) X10*3/uL Nucleated RBC % (auto) (0.0-0.2) /100WBC PT (9.9-13.0) SEC INR (0.9-1.1) D-Dimer High Sensitivty NG/ML Sodium (135-145) mmol/L Potassium (3.3-5.1) mmol/L Chloride (96-108) mmol/L Carbon Dioxide (22-29) mmol/L Anion Gap (12-20) BUN (9-16) mg/dL Creatinine (0.5-1.4) mg/dL Estim Creat Clear Calc Estimated GFR Random Glucose (60-115) mg/dL Calcium (8.4-10.2) mg/dL Total Bilirubin (0.0-1.0) mg/dL AST (5-31) U/L ALT (0-31) U/L Alkaline Phosphatase (39-117) U/L Troponin I High Sens (<3.5-17.0) ng/L B-Natriuretic Peptide (<100) pg/mL Total Protein (6.5-8.0) g/dL Albumin (3.5-5.0) g/dL Urine Color Urine Appearance Urine pH (5.0-8.0) Ur Specific [place] (1.005-1.025) Urine Protein (NEG-TRACE) MG/DL Urine Glucose (UA) (NEG) MG/DL Urine Ketones (NEG) MG/DL Urine Blood (NEG) Urine Nitrite (NEG) Ur Leukocyte Esterase (NEG) Urine RBC (0) /HPF Urine WBC (0-4) /HPF Ur Squamous Epith Cells /LPF Urine Bacteria /LPF Urine Mucus /LPF COVID-19 (MIRANDA) Negative (Negative) COVID-19 Clin Com See Note Influenza Type A (KAUSHIK) Negative (Negative) Influenza Type B (KAUSHIK) Negative (Negative) Influenza A & B Note See Note <Marcela Dubois MD - Last Filed: 10/12/21 05:00> Critical Care Time Critical Care Time Critical Care Time: No <JOE Guillory - Last Filed: 10/12/21 03:18> Discharge Plan Discharge Clinical Impression: Fall, Forehead laceration, Bronchitis <JOE Guillory - Last Filed: 10/12/21 03:18> Patient Disposition: Home, Self-Care <JOE Guillory - Last Filed: 10/12/21 03:18> Instructions: Laceration (ED), Acute Bronchitis (ED), Fall Prevention (ED) <JOE Guillory - Last Filed: 10/12/21 03:18> Additional Instructions: Take your medications as prescribed. If you were prescribed antibiotics today, it is important that you take your medication to their entirety, do not skip any doses, do not finish them early. Follow-up with your primary care provider this week. Return to the emergency department with new or worsening symptoms. Such as fevers, chills, chest pain, shortness of breath, nausea, vomiting, dizziness, headache, vision changes, lethargy In case of emergency call 911 <JOE Guillory - Last Filed: 10/12/21 03:18> Prescriptions: New albuterol sulfate 90 mcg/actuation aerosol powdr breath activated 2 inh inhalation Q4-6H PRN (Reason: shortness of breath or wheezing) Qty: 1 0RF azithromycin 250 mg tablet See Rx Instructions .ROUTE .COMPLEX Qty: 6 0RF Rx Instructions: For 250 mg dose pack: take 500 mg today (day 1), then 250 mg for 4 days (days 2-5) No Action (DME) pen needle, diabetic [Easy Touch] 31 gauge x 3/16 needle See Rx Instructions ea .ROUTE .MEDSUPPLY Qty: 50 0RF Rx Instructions: As directed (DME) FreeStyle Lite Strips Strip See Rx Instructions strip Not Applicable BID Qty: 10 0RF Rx Instructions: As directed Breo Ellipta 100-25 mcg/dose blister with device inhalation 0RF Tradjenta 5 mg tablet 5 mg PO QAM 0RF calcium carbonate-vitamin D3 600 mg(1,500mg) -400 unit tablet 1 tab PO DAILY 0RF loratadine 10 mg tablet 10 mg PO QAM 0RF losartan 100 mg tablet 100 mg PO DAILY 0RF furosemide 20 mg tablet 20 mg PO QAM 0RF clopidogrel 75 mg tablet 75 mg PO QAM 0RF hydralazine 25 mg tablet 25 mg PO 0RF carvedilol 12.5 mg tablet 12.5 mg PO BID 0RF atorvastatin 80 mg tablet 80 mg PO DAILY 0RF Levemir FlexTouch U-100 Insuln 100 unit/mL (3 mL) insulin pen 5 unit subcut 0RF meclizine 25 mg tablet 25 mg PO TID 0RF <JOE Guillory - Last Filed: 10/12/21 03:18>
--- NOTE | 2021-10-11 20:14 | ECG_ITS ---
Test Reason : FALL Blood Pressure : / mmHG Vent. Rate : 069 BPM Atrial Rate : 069 BPM P-R Int : 244 ms QRS Dur : 140 ms QT Int : 476 ms P-R-T Axes : 074 -45 106 degrees QTc Int : 510 ms Sinus rhythm with 1st degree A-V block Left axis deviation Left bundle branch block Abnormal ECG No previous ECGs available Referred By: Zeinab Rowan Electronically Signed By:DUNCAN MALCOLM MD
[2021-10-11 20:20] LABS: MANUAL DIFF FLAG NO
[2021-10-11 20:23] VITALS: BP 137/65; PULSE 71; RESP 18; O2SAT 93
[2021-10-11 20:27] LABS: Basophils Absolute Auto 0.1 X10*3/uL (0.0-0.2); Basophils Percent Auto 0.6 % (0-2); Eosinophils Absolute Auto 1.4 X10*3/uL (0.0-0.4); Eosinophils Percent Auto 17.5 % (0-4); Hematocrit 38.5 % (37.0-47.0); Hemoglobin 12.8 g/dl (12.0-16.0); Imm Gran Abs Auto 0.02 X10*3/uL (0.00-0.03); Imm Gran Pct Auto 0.2 % (0.0-0.4); Lymphocytes Absolute Auto 1.7 X10*3/uL (1.2-4.9); Lymphocytes Percent Auto 20.9 % (20-40); Mean Corpuscular HGB Conc 33.2 g/dl (31.0-35.0); Mean Corpuscular Volume 99.2 fL (80.0-98.0); Mean Platelet Volume 9.9 fL (9.4-12.3); Monocytes Absolute Auto 0.4 X10*3/uL (0.1-1.2); Monocytes Percent Auto 5.2 % (2-11); Neutrophils Absolute Auto 4.5 x10*3/uL (2.0-8.3); Neutrophils Percent Auto 55.6 % (45-73); Platelet Count 157 X10*3/uL (160-400); Red Blood Count 3.88 X10*6/uL (4.20-5.50); Red Cell Distribution Width 13.2 % (11.0-16.0); White Blood Count 8.1 X10*3/uL (4.8-10.8)
[2021-10-11] MEDS: Albuterol/Iprat 2.5/0.5MG 3 ML AMPUL.NEB INHALE (20:33)
[2021-10-11 20:34] LABS: INTERNATIONAL NORM RATIO 1.1 (0.9-1.1); Prothrombin Time 12.8 SEC (9.9-13.0)
[2021-10-11 20:42] LABS: Alanine Aminotransferase 23 U/L (0-31); Albumin Level 3.4 g/dL (3.5-5.0); Alkaline Phosphatase 56 U/L (39-117); Anion Gap 10 (12-20); Aspartate Amino Transferase 31 U/L (5-31); Bilirubin Total 1.4 mg/dL (0.0-1.0); Blood Urea Nitrogen 21 mg/dL (9-16); Calcium 10.6 mg/dL (8.4-10.2); Carbon Dioxide 28 mmol/L (22-29); Chloride 107 mmol/L (96-108); Creatinine Clr Calc Pharmacy 17.2; Estimated Glomerular Filt Rate 34; Glucose Random 111 mg/dL (60-115); Potassium 3.8 mmol/L (3.3-5.1); Sodium 141 mmol/L (135-145); Total Protein 6.8 g/dL (6.5-8.0)
[2021-10-11 20:57] LABS: B Type Natriuretic Peptide 193 pg/mL (<100)
[2021-10-11 21:28] LABS: Appearance Urine HAZY; Color Urine YELLOW; Glucose Urine UA NEG (NEG); Leukocyte Esterase Urine 3+ (NEG); Nitrite Urine NEG (NEG); PH 6.5 (5.0-8.0); Specific Gravity - Urine 1.015 (1.005-1.025); UACC Culture Trigger YES; Urine Blood NEG (NEG); Urine Ketones NEG (NEG); Urine Protein NEG (NEG-TRACE)
[2021-10-11 21:43] LABS: Bacteria Urine 3+ /LPF; Mucus Urine 2+ /LPF; Squamous Epithelial Cell Urine 1+ /LPF
[2021-10-11 23:39] VITALS: BP 151/72; PULSE 62; RESP 14; O2SAT 94
[2021-10-11] MEDS: 0.9 % Sodium Chloride 1,000 ML 999 ML IV (23:50)
[2021-10-11 23:56] LABS: COVID-19 Test Negative (Negative); IDNOW Serial# 08D9AD1C; Influenza A Negative (Negative); Influenza B2 Negative (Negative); Troponin-I High Sensitivity 15.9 ng/L (<3.5-17.0)
[2021-10-11 23:56] LABS: D Dimer High Sensitivity 560 NG/ML
[2021-10-12 00:35] VITALS: O2SAT 93
[2021-10-12 01:55] VITALS: RESP 16; O2SAT 93
[2021-10-12] MEDS: iohexoL 350 MG/ML 100 ML INFUS..BTL 65 ML IV (03:37)
[2021-10-12 05:09] VITALS: BP 160/77; PULSE 74; RESP 14; TEMP 36.4
== END 2021-10-12 05:19 | disposition home or self-care (01) ==
PROVIDERS: Physician Assistant; Emergency Provider Emergency Medicine; PCP Student in an Organized Health Care Education/Training Program
DX: S01.81XA Laceration without foreign body of other part of head, initial encounter (principal); W01.198A Fall on same level from slipping, tripping and stumbling with subsequent striking against other object, initial encounter; J40 Bronchitis, not specified as acute or chronic; R53.1 Weakness; R51.9 Headache, unspecified; Z91.81 History of falling; Z20.822 Contact with and (suspected) exposure to COVID-19; I50.20 Unspecified systolic (congestive) heart failure; Y93.89 Activity, other specified; Y92.012 Bathroom of single-family (private) house as the place of occurrence of the external cause; Y99.9 Unspecified external cause status; Z79.02 Long term (current) use of antithrombotics/antiplatelets; Z79.4 Long term (current) use of insulin; Z86.73 Personal history of transient ischemic attack (TIA), and cerebral infarction without residual deficits; Z95.810 Presence of automatic (implantable) cardiac defibrillator
CPT/HCPCS: 36415; 70450; 71045; 71250; 71275; 72125; 80053; 81001; 83880; 84484; 85025; 85379; 85610; 87086; 87502; 87635; 93005; 96360; 99284; Q9967

== ENCOUNTER → 2021-11-15 14:07 | Outpatient (BNVA) | payer OTHER, SELFPAY | PROVIDERS: PCP Internal Medicine; Referring Provider Internal Medicine; Visit Provider Internal Medicine Cardiovascular Disease | DX: I50.20 Unspecified systolic (congestive) heart failure (principal); R54 Age-related physical debility; Z86.79 Personal history of other diseases of the circulatory system; Z45.02 Encounter for adjustment and management of automatic implantable cardiac defibrillator | CPT/HCPCS: 99212 ==